=== PATIENT | female | born 2005 | race Caucasian/White ===

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

== ENCOUNTER 2023-05-16 14:09 | Inpatient (IN) | payer OTHER, SELFPAY ==
[2023-05-16] VITALS (99 sets, daily range): BP systolic 62–188; BP diastolic 30–170; PULSE 72–256; RESP 16–18; TEMP 36.3–37.1; O2SAT 95–100; BMI 39.0
[2023-05-16 15:15] LABS: Basophils Percent Auto 0.4 % (0.2-1.2); Eosinophils Absolute Auto 0.2 K/mm3 (0-0.3); Eosinophils Percent Auto 1.9 % (0-4.4); Hematocrit 39.5 % (37.0-47.0); Hemoglobin 12.2 g/dL (12.0-15.0); Immature Granulocyte Absolute 0.09 K/mm3 (0.00-0.031); Immature Granulocyte Percent A 0.9 % (0-0.5); Lymphocytes Absolute Auto 1.91 K/mm3 (0.9-3.2); Lymphocytes Percent Auto 18.2 % (18.3-44.2); Mean Corpuscular HGB Conc 30.9 g/dl (32-36); Mean Corpuscular Hemoglobin 28.2 pg (26-34); Mean Corpuscular Volume 91.2 fl (80-100); Monocytes Absolute Auto 0.6 K/mm3 (0.1-0.6); Monocytes Percent Auto 5.8 % (2.6-8.5); Neutrophils Absolute Auto 7.7 K/mm3 (1.3-6.7); Neutrophils Percent Auto 72.8 % (45.5-73.1); Platelet Count Result 209 k/mm3 (150-375); Red Blood Count 4.33 M/mm3 (4.2-5.4); Red Cell Distribution Width 13.2 % (11.5-14.5); White Blood Count 10.5 K/mm3 (4.5-10.0)
--- NOTE | 2023-05-16 15:19 | LDADM ---
This patient, Mary Patino, was admitted to Labor/Delivery/Recovery 105 on 05/16/23 at 14:09. Plans for labor, pain management and were discussed with patient. Patient/family oriented to hospital policies and general routines including ID bracelet, bed and alarms, visiting hours, pain management, procedures, bathroom and other care routines, personal items, smoking policy, room service/diet and guest tray routines, security routines, and visiting hours. Patient/Family are encouraged to report perceived risks to care and to ask questions if they do not understand what they are told or what they should do. See OBIX for further documentation.
[2023-05-16] MEDS: miSOPROStol 25 MCG TABLET VAGINAL (15:51)
--- NOTE | 2023-05-16 17:52 | PM.IMHP ---
H&P: HPI History of Present Illness Date/Time: 05/16/23 17:52 pt being admitted for IOL, at office visit today diagnosed with oligohydramnios. complicated by obesity. Chief Complaint: oligohydramnios PMFSH Family History Family History (Updated 05/12/23 @ 15:14 by Barbara Pascual RN) Other Patient denies significant medical history Social History Social History Smoking status: Current every day smoker Tobacco type: e-cigarettes/vaping Second hand tobacco smoke exposure: No Substance use: never Lack of Transportation: YES Lack of Food: Never True Current Housing: I Do Not Have Housing Concerned About Future Housing: No Difficulty Paying Gas/Electric Bills: No Difficulty Paying for Meds: No Currently Unemployed: No Education: High School Diploma/GED Difficulty w/ Childcare or Family Care: No Spiritual care concerns: No Meds Home Medications and Allergies Home Medications Medication Instructions Recorded Confirmed Type prenat.vits,remington,[id number] 1 tablet DAILY 05/12/23 05/16/23 History Allergies Allergy/AdvReac Type Severity Reaction Status Date / Time No Known Allergies Allergy Verified 12/06/20 19:47 Vital Signs Vital Signs - 24 hr 05/16/23 14:30 05/16/23 14:31 05/16/23 14:45 Temperature Pulse Rate 131 H 139 H 124 H Respiratory Rate Blood Pressure 136/85 123/74 135/85 Oxygen Delivery 05/16/23 15:01 05/16/23 15:16 05/16/23 15:31 Temperature Pulse Rate 113 H 111 H 107 H Respiratory Rate Blood Pressure 115/73 104/68 115/83 Oxygen Delivery 05/16/23 15:46 05/16/23 16:01 05/16/23 15:00 Temperature 36.3 C L Pulse Rate 121 H 108 H Respiratory Rate 18 Blood Pressure 110/69 116/75 Oxygen Delivery 05/16/23 16:16 05/16/23 16:31 05/16/23 16:45 Temperature Pulse Rate 100 96 93 Respiratory Rate Blood Pressure 121/80 111/55 L 123/80 Oxygen Delivery 05/16/23 17:04 05/16/23 17:16 05/16/23 17:31 Temperature Pulse Rate 99 147 H 101 H Respiratory Rate Blood Pressure 115/67 111/88 130/80 Oxygen Delivery 05/16/23 17:46 05/16/23 15:13 Temperature Pulse Rate 112 H Respiratory Rate Blood Pressure 127/74 Oxygen Delivery Room Air Exam Narrative: at 37.5 weeks gestation obesity oligohydramnios anticipate vaginal delivery Const: General: cooperative, healthy appearing and comfortable Chest: Chest palpation & inspection: normal inspection of the chest Resp: Effort & Inspection: normal respiratory effort Auscultation: clear to auscultation bilaterally Cardio: Rate: regular rate Rhythm: regular rhythm GI: Other: gravid, soft Skin: General skin exam: normal color Neuro: General: patient oriented x3 Extrem: Right lower extremity: normal to inspection Left lower extremity: normal to inspection Psych: Appearance: grossly normal H&P: Results Labs Labs: Short CBC 05/16/23 Range/Units 14:48 WBC 10.5 H (4.5-10.0) K/mm3 Hgb 12.2 (12.0-15.0) g/dL Hct 39.5 (37.0-47.0) % Plt Count 209 (150-375) k/mm3
[2023-05-16] MEDS: LACTATED RINGERS 500 ML 999 ML IV CONT (18:29)
--- NOTE | 2023-05-16 18:34 | P.PNAN_ITS ---
Anes - Eval Pre Procedure Procedure: labor epidural Date/Time: 05/16/23 18:34 Surgeon: brynn Preop Diagnosis: pain during labor Pre Op Diagnosis: IOL Patient Data Age: 17 Gender: F Height: 1.6 m Weight: 100 kg Last Vital Signs Temp 37.1 C 05/16/23 18:30 Pulse 98 05/16/23 18:31 Resp 16 05/16/23 18:30 BP 112/73 05/16/23 18:31 O2 Del Method Room Air 05/16/23 15:13 Allergies Allergy/AdvReac Type Severity Reaction Status Date / Time No Known Allergies Allergy Verified 12/06/20 19:47 Home Medications Medication Instructions Recorded Confirmed Type prenat.vits,remington,[id number] 1 tablet DAILY 05/12/23 05/16/23 History Laboratory Tests 05/16/23 14:48 WBC 10.5 H K/mm3 (4.5-10.0) RBC 4.33 M/mm3 (4.2-5.4) Hgb 12.2 g/dL (12.0-15.0) Hct 39.5 % (37.0-47.0) MCV 91.2 fl (80-100) MCH 28.2 pg (26-34) MCHC 30.9 L g/dl (32-36) RDW 13.2 % (11.5-14.5) Plt Count 209 k/mm3 (150-375) MPV 12.0 H fl (7.4-10.4) Immature Gran % (Auto) 0.9 H % (0-0.5) Neut % (Auto) 72.8 % (45.5-73.1) Lymph % (Auto) 18.2 L % (18.3-44.2) [place] % (Auto) 5.8 % (2.6-8.5) Eos % (Auto) 1.9 % (0-4.4) Baso % (Auto) 0.4 % (0.2-1.2) Lymph # (Auto) 1.91 K/mm3 (0.9-3.2) [place] # (Auto) 0.6 K/mm3 (0.1-0.6) Eos # (Auto) 0.2 K/mm3 (0-0.3) Baso # (Auto) 0.0 K/mm3 (0.0-0.1) Abs Immat Gran (auto) 0.09 H K/mm3 (0.00-0.031) Absolute Neuts (auto) 7.7 H K/mm3 (1.3-6.7) Absolute Nucleated RBC 0.0 K/mm3 (0.0-0.012) Nucleated RBC % 0.0 % (0.0-0.2) RPR Pending Blood Type B Positive Antibody Screen Negative Patient hx anesthesia problems: none Family hx anesthesia problems: none Results Review: All pre-operative results and documents have been reviewed as part of the pre- operative evaluation. [facility] Family History Family History (Updated 05/12/23 @ 15:14 by Barbara Pascual RN) Other Patient denies significant medical history Social History Social History Smoking status: Current every day smoker Tobacco type: e-cigarettes/vaping Second hand tobacco smoke exposure: No Substance use: never Lack of Transportation: YES Lack of Food: Never True Current Housing: I Do Not Have Housing Concerned About Future Housing: No Difficulty Paying Gas/Electric Bills: No Difficulty Paying for Meds: No Currently Unemployed: No Education: High School Diploma/GED Difficulty w/ Childcare or Family Care: No Spiritual care concerns: No Exam Day of Procedure 05/16/23 18:34
--- NOTE | 2023-05-16 19:44 | PM.OBPNLAB ---
Pain Control Date/time seen: 05/16/23 19:44 RN called requesting internal monitors, CNM at bs, AROM minimal amount of clear, odorless fluid, IUPC placed
[2023-05-16] MEDS: LACTATED RINGERS 1,000 ML 125 ML IV CONT (19:45)
[2023-05-17] VITALS (77 sets, daily range): BP systolic 62–169; BP diastolic 46–141; PULSE 85–155; RESP 16–18; TEMP 36.7–37.3; O2SAT 79–100
--- NOTE | 2023-05-17 04:16 | PM.OBPRVD ---
OB - Delivery Note Procedure Delivery date: 05/17/23 Procedure: Events: Oligohydramnios Induction method: AROM and Per Misoprostol Protocol Delivery augmentation: Rupture of Membranes Delivery monitor: External FHT and Internal Uterine Route of delivery: Laceration Description: None Specimen: Yes Quantitative Blood Loss (ml): 100 Anesthesia type: Epidural Disposition: Floor Baby Date of : 05/17/23 Time of : 04:07 Weeks of gestation at delivery: 37 gender: Male presentation: vertex position: Left Occiput Anterior Placenta delivery description: Spontaneous Cord Vessel Description: 3 Vessels, Clamped/Cut and Delayed Cord Clamping score one minute: 8 score five minutes: 9 Narrative: mother and baby skin to skin in stable condition
[2023-05-17] MEDS: OXYTOCIN 30 UNITS/NS 500 ML 30 UNITS/500 ML BAG 125 UNITS IV CONT (04:43)
--- NOTE | 2023-05-17 07:54 | OBPPTRN ---
Patient transferred to post room #291 via wheelchair. Support person present. Oriented to unit, room, information board, rooming in, admission packet and security measures. Patient verbalizes understanding.
[2023-05-17] MEDS: IBUPROFEN 600 MG TABLET PO ×3 (08:19→22:47)
[2023-05-17] MEDS: MULTIVIT/MIN/PREN/FOL AC/IRON TABLET 1 TAB PO (08:20)
--- NOTE | 2023-05-17 10:33 | PC.NURSE ---
[id number] Introductions were made, then consulted with patient to assess needs related to . Mother works well with her with encouragement and education. Mother is cradle holding infant skin to skin. RN recommended placing upright on her chest to encouraged infants instincts for . Educated parents to stimulate infant with massage touch, changing positions to encourage wakefulness, how to watch for early feeding cues, responsive feeding, feeding on demand (aiming for 8-12 times in 24 hours, about every 2-3 hours), milk production, building/maintaining a milk supply,hand expression, signs of adequate intake/output and how to record on the feeding sheet. Reviewed good handwashing when or touching the breast/nipples to prevent infection. Resources provided for inpatient/outpatient with name written on the communication board and the mom/baby guide. Parents voiced understanding of information, demonstrated learning and will call if there is a request for assistance. is between and 6 hours old and remains sleepy and reluctant. Reported to the Primary RN.
--- NOTE | 2023-05-17 11:13 | PC.NURSE ---
1100 - Purposefully rounded to assess needs. Primary RN is present in the room bottle feeding .
[2023-05-17] MEDS: DOCUSATE SODIUM 100 MG CAPSULE PO (15:44)
[2023-05-17 17:06] LABS: Rapid Plasma Reagin Non-Reactive (NonReactive)
[2023-05-17] MEDS: ACETAMINOPHEN 325 MG TABLET 650 MG PO (22:47)
[2023-05-17] MEDS: miSOPROStol 25 MCG TABLET VAGINAL (22:48)
[2023-05-18 05:31] LABS: Hematocrit 33.4 % (37.0-47.0); Hemoglobin 10.5 g/dL (12.0-15.0)
--- NOTE | 2023-05-18 07:28 | PM.OBPNVD ---
OB - PN: Subj Subjective Date/time seen: 05/18/23 07:28 Patient comments: no complaints baby status: doing well Narrative: pt to stay until tomorrow, baby not feeding well per peds OB - PN: Obj Data Labs 05/18/23 04:12 Labs: Laboratory Results - last 24 hr 05/16/23 05/18/23 14:48 04:12 Hgb 10.5 L Hct 33.4 L RPR Non-reactive OB - PN A/P Plan day: 1 Plan: routine care Time Spent With Patient Time: Total time spent is greater than 50% in coordination of care (as documented) at patient's floor/unit and/or counseling patient: Review of Systems Review of Systems: All systems reviewed & are unremarkable except as noted in HPI and below Exam Const: General: cooperative, healthy appearing and comfortable Chest: Chest palpation & inspection: normal inspection of the chest Resp: Effort & Inspection: normal respiratory effort Cardio: Rate: regular rate Rhythm: regular rhythm GI: Other: soft Extrem: Right lower extremity: normal to inspection Left lower extremity: normal to inspection
[2023-05-18 08:00] VITALS: BP 108/59; PULSE 91; RESP 18; TEMP 37.1; O2SAT 99
[2023-05-18] MEDS: IBUPROFEN 600 MG TABLET PO ×2 (08:01→16:04)
[2023-05-18] MEDS: ACETAMINOPHEN 325 MG TABLET 650 MG PO (08:01)
[2023-05-18] MEDS: DOCUSATE SODIUM 100 MG CAPSULE PO ×2 (08:02→16:04)
[2023-05-18] MEDS: MULTIVIT/MIN/PREN/FOL AC/IRON TABLET 1 TAB PO (08:02)
--- NOTE | 2023-05-18 08:58 | WPDANESPN ---
Anes - Prog Note Post-Op Date/Time: 05/18/23 08:58 Cardiovascular status: normal Respiratory status: normal Airway patency: baseline Mental status: baseline Post-Op hydration status: normal Vital Signs: Last Vital Signs Temp 36.8 C 05/17/23 19:24 Pulse 85 05/17/23 19:24 Resp 18 05/17/23 19:24 BP 108/60 05/17/23 19:24 Pulse Ox 99 05/17/23 12:33 O2 Del Method Room Air 05/17/23 19:29 Pain Score (VAS): 2/10 Laboratory Tests 05/18/23 04:12 05/16/23 05/18/23 14:48 04:12 Hgb 10.5 L Hct 33.4 L RPR Non-reactive Post-procedural complaints: none Patient Feedback: Patient satisfied with anesthetic care.
[2023-05-18] MEDS: WITCH HAZEL 40 PADS 1 PAD TOPICAL (16:05)
[2023-05-18 19:45] VITALS: BP 131/69; PULSE 107; RESP 18; TEMP 36.3; O2SAT 100
[2023-05-19] MEDS: ACETAMINOPHEN 325 MG TABLET 650 MG PO (01:50)
--- NOTE | 2023-05-19 07:52 | P.PNOB_ITS ---
OB - PN: Subj Subjective Date/time seen: 05/19/23 07:52 Patient comments: no complaints baby status: doing well [place] feeding status: exclusively bottle feeding OB - PN: Obj Data Labs 05/18/23 04:12 OB - PN A/P Plan day: 2 Plan: routine care and discharge home Time Spent With Patient Time: Total time spent is greater than 50% in coordination of care (as documented) at patient's floor/unit and/or counseling patient: Time with patient: less than 15 minutes Exam Narrative: NAD abdomen soft, nontender, fundus firm below the umbilicus Extremities nontender, 1+ edema
--- NOTE | 2023-05-19 07:55 | PM.OBDSVD ---
DS: Admitting Diagnosis Discharge Date 05/19/23 Admitting Diagnosis oligohydramnios at term DS: Discharge Diagnosis Discharge Diagnosis (1) , delivered: Code(s): O80 - Encounter for full-term uncomplicated delivery Status: Acute OB - DS: Summary Hospital Course Hospital Course: Mary was admitted for induction of labor for oligohydramnios at 37.4 weeks of . She proceeded to have an uncomplicated vaginal delivery and course and was discharged home on PPD2. OB Procedures : Ultrasound OB Procedures Intrapartum: Spontaneous Vag Delivery OB Procedures: : None Peripartum Data Infant Delivery Method: Natural Vaginal Status at Discharge Functional status at discharge: independent ambulation Time Spent with Patient Time attestation: Total time spent providing and/or coordinating discharge services: Exam Narrative: NAD abdomen soft, appropriately tender Ext non tender, 1+ edema DS: Data Data Completed and Pending Pending studies at discharge: Pending at discharge 05/17/23 05:54 Surgical [PTH] Routine Discharge Plan Discharge Attending physician on discharge: Ashley Perrin Discharging Clinician: Ashley Perrin Anticipated Discharge Date/Time: 05/19/23 07:54 Patient Disposition: Home, Self-Care Activity: pelvic rest Diet: regular Patient Instructions: Antibiotic Form Stand Alone Forms: General Discharge Information Follow-up/Referrals: Ashley Perrin MD [Physician] - 4 Weeks Discharge Medications: Continued #2 Tablet 1 tablet DAILY Date of admission: 05/16/23 14:09 Primary Care Provider: PHYSICIAN,[employer] SALES AGENT Admitting Provider: Ashley Perrin Attending physician on admission: Ashley Perrin Condition: Stable
[2023-05-19 08:00] VITALS: BP 110/64; PULSE 88; RESP 16; TEMP 36.9; O2SAT 99
--- NOTE | 2023-05-19 10:47 | PC.NURSE ---
Patient viewed the discharge video Mother & Baby Care, The First Two Weeks . Patient was given the opportunity and encouraged to ask questions. Patient verbalized understanding of information shared and has been given the mother/baby guide for home reference.
[2023-05-21 09:45] VITALS: BP 107/58; PULSE 91; RESP 16; TEMP 36.6; O2SAT 99
== END 2023-05-19 14:55 | disposition home or self-care (01) | DRG 807 ==
LOC: ANHLDR 14:13 → ANHOB2 05-17 07:58
PROVIDERS: Advanced Practice Midwife; Admitting Provider Obstetrics & Gynecology; Visit Provider Obstetrics & Gynecology
DX: O41.03X0 Oligohydramnios, third trimester, not applicable or unspecified (principal); Z37.0 Single live birth; O99.214 Obesity complicating childbirth; O99.334 Smoking (tobacco) complicating childbirth; F17.290 Nicotine dependence, other tobacco product, uncomplicated; Z3A.37 37 weeks gestation of pregnancy
CPT/HCPCS: 36415; 85014; 85018; 85025; 86592; 86850; 86900; 86901; 88307; A9270; J2590; J2795; J7120

== ENCOUNTER 2024-10-23 13:36 | Outpatient (CLI) | payer OTHER, MEDICAID, SELFPAY ==
--- NOTE | ~2024-10-23 | CT_ITS ---
EXAMINATION: CT soft tissue neck w con DATE: 10/23/2024 14:03 INDICATION: Localized neck swelling. TECHNIQUE: Computed tomography (CT) of the neck was performed with 75 mL Omnipaque-350 intravenous co ntrast. Automated exposure control and iterative reconstruction technique were employed. The dose-nithin gth product was 627.26 mGy-cm. COMPARISON: None FINDINGS: There is mild bilateral high internal jugular chain lymphadenopathy. The pharynx and larynx are normal. The orbits are normal. The paranasal sinuses are clear. The mastoid air cells are normal . There is mild cervical kyphosis. IMPRESSION: 1. Mild bilateral high internal jugular chain lymphadenopathy, likely reactive. Reviewed, dictated and finalized at location A. 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
--- OUTSIDE RECORDS SUMMARY | 2024-10-23 13:42 | XMS_ITS | Data Portability ---
[facility] Address 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 Name Role Phone JOSSELYN CURIEL Primary Care Provider [phone] Assessment Encounter Date Assessment Date Assessment LastModified by Organization Details LastModified Time 04/12/2021 04/12/2021 Nelly Castellanos PANereidaS Not available 04/12/2021 10:06:07 Plan of Treatment Reminders Order Date Submit Date Provider Last Modified By Organization Details Last Modified Time Details Appointments ANY 15 2024 03:30P Elissa Cleary MD Not available Not available Not available ANY 15 2024 02:00P Elissa Cleary MD Not available Not available Not available Lab cortisol, am, serum 2023 024 [email or web address] [facility], [address] [place] [address], [address], [place], [address], 08/18/2024 17:54:25 CBC 2023 024 DIMA [facility], [address], [address], [place], [address], 07/09/2024 11:20:37 CMP, serum or plasma 2023 024 DIMA [facility], [address], [address], [place], [address], 07/09/2024 11:20:34 vitamin B12 + folate, serum or blood 2023 024 DIMA [facility], [address], [address], [place], [address], 07/09/2024 11:20:36 TSH + free T4, serum 2023 024 DIMA [facility], [address], [address], [place], [address], 07/09/2024 11:20:32 lipid panel, serum 2023 024 DIMA [facility], [address], [address], [place], [address], 07/09/2024 11:20:33 Mycobacte rium tuberculo sis stimulate d gamma interfero n, qual, blood 2022 023 DIMA [facility], [address], [address], [place], [address], 12/05/2022 08:18:52 HbA1c (hemoglob in A1c), blood 2020 021 DIMA [facility], [address], [address], [place], [address], 04/13/2021 06:11:18 lipid panel, serum 2020 021 DIMA [facility], [address], [address], [place], [address], 04/13/2021 06:11:18 Referral podiatris t referral - R dorsal foot pain, hx of stress fracture, pes cavus 2020 021 [email or web address] Jun Mooney DPM, [address] , [place], [address], 11/14/2021 08:38:10 Procedures None recorded. Surgeries None recorded. Imaging CT, neck, soft tissue, w/ contrast [address] [facility], [address], [place], [address], 09/18/2024 08:18:04 XR, foot, 3 or more view 2020 021 [facility] ([facility]), [address] [place], [address], 06/07/2021 11:07:00 Medication Orders Medrol (Cornell) 4 mg tablets in a dose pack 2024 025 [email or web address] [id number], [address], [place], [id number], 10/21/2024 14:15:30 loratadin e 10 mg tablet 2022 [facility]23 [id number], [address], [place], [place], [id number], 07/08/2024 14:14:57 ibuprofen 800 mg tablet 2020 021 [facility] #[id number], [address], [place], [place], [id number], 12/01/2022 11:31:33 Patient TargetsNo targets recorded. 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 R dorsal foot pain, hx of stress fracture, pes cavus Referring Physician: Josselyn Curiel, Smoking Pipe Mounter, Encounter Date: 04/12/2021 Results Created Date Observation Date Name Description Value Unit Range Abnormal Flag Note LastModifiedBy Organization Detail LastModifiedTime 04/12/20 21 04/13/2021 CBC WITH DIFFE RENTI AL/PL ATELE T WBC 6.8 x10e3 /uL 3.4-10 .8 Not Available [facility] ([facility]) [address] [place], [address], 04/13/2021 06:11:17 04/12/2004/13/2021 CBC WITH DIFFE RENTI AL/PL ATELE T RBC 4.58 x10e6 /uL 3.77-5 .28 Not Available [facility] ([facility]) [address] [place], [address], 04/13/2021 06:11:17 04/12/2004/13/2021 CBC WITH DIFFE RENTI AL/PL ATELE T hemoglobin 13.5 g/dL 11.1-1 5.9 Not Available [facility] ([facility]) [address] [place], [address], 04/13/2021 06:11:17 04/12/2004/13/2021 CBC WITH DIFFE RENTI AL/PL ATELE T hematocrit 41.0 % 34.0-4 6.6 Not Available [facility] ([facility]) [address] [place], [address], 04/13/2021 06:11:17 04/12/2004/13/2021 CBC WITH DIFFE RENTI AL/PL ATELE T MCV 90 fL 79-97 Not Available [facility] ([facility]) [address] [place], [address], 04/13/2021 06:11:17 08/03/04/13/2021 CBC WITH DIFFE RENTI AL/PL ATELE T MCH 29.5 pg 26.6-3 3.0 Not Available [facility] ([facility]) [address], [place], [address], 04/13/2021 06:11:17 04/12/20 21 04/13/2021 CBC WITH DIFFE RENTI AL/PL ATELE T MCHC 32.9 g/dL 31.5-3 5.7 Not Available [facility] ([facility]) [address], [place], [address], 04/13/2021 06:11:17 04/12/2004/13/2021 CBC WITH DIFFE RENTI AL/PL ATELE T RDW 12.4 % 11.7-1 5.4 Not Available [facility] ([facility]) [address], [place], [address], 04/13/2021 06:11:17 04/12/2004/13/2021 CBC WITH DIFFE RENTI AL/PL ATELE T platelets 259 x10e3 /uL 150-45 0 Not Available [facility] ([facility]) [address], [place], [address], 04/13/2021 06:11:17 04/12/2004/13/2021 CBC WITH DIFFE RENTI AL/PL ATELE T neutrophils 52 % not estab. Not Available [facility] ([facility]) [address], [place], [address], 04/13/2021 06:11:17 04/12/20 21 04/13/2021 CBC WITH DIFFE RENTI AL/PL ATELE T lymphs 37 % not estab. Not Available [facility] ([facility]) [address], [place], [address], 04/13/2021 06:11:17 04/12/20 21 04/13/2021 CBC WITH DIFFE RENTI AL/PL ATELE T monocytes 8 % not estab. Not Available [facility] ([facility]) [address] [place], [address], 04/13/2021 06:11:17 04/12/20 21 04/13/2021 CBC WITH DIFFE RENTI AL/PL ATELE T eos 2 % not estab. Not Available [facility] ([facility]) [address] [place], [address], 04/13/2021 06:11:17 04/12/20 21 04/13/2021 CBC WITH DIFFE RENTI AL/PL ATELE T basos 1 % not estab. Not Available [facility] ([facility]) [address], [place], [address], 04/13/2021 06:11:17 04/12/20 21 04/13/2021 CBC WITH DIFFE RENTI AL/PL ATELE T immature cells SITE PLANNER Not Available [facility] ([facility]) [address] [place], [address], 04/13/2021 06:11:17 04/12/2004/13/2021 CBC WITH DIFFE RENTI AL/PL ATELE T neutrophils (absolute) 3.6 x10e3 /uL 1.4-7. 0 Not Available [facility] ([facility]) [address] [place], [address], 04/13/2021 06:11:17 04/12/20 21 04/13/2021 CBC WITH DIFFE RENTI AL/PL ATELE T lymphs (absolute) 2.5 x10e3 /uL 0.7-3. 1 Not Available [facility] ([facility]) [address] [place], [address], 04/13/2021 06:11:17 04/12/20 21 04/13/2021 CBC WITH DIFFE RENTI AL/PL ATELE T monocytes(ab solute) 0.5 x10e3 /uL 0.1-0. 9 Not Available [facility] ([facility]) [address], [place], [address], 04/13/2021 06:11:17 04/12/20 21 04/13/2021 CBC WITH DIFFE RENTI AL/PL ATELE T eos (absolute) 0.1 x10e3 /uL 0.0-0. 4 Not Available [facility] ([facility]) [address], [place], [address], 04/13/2021 06:11:17 04/12/20 21 04/13/2021 CBC WITH DIFFE RENTI AL/PL ATELE T baso (absolute) 0.1 x10e3 /uL 0.0-0. 3 Not Available [facility] ([facility]) [address], [place], [address], 04/13/2021 06:11:17 04/12/20 21 04/13/2021 CBC WITH DIFFE RENTI AL/PL ATELE T immature granulocytes 0 % not estab. Not Available [facility] ([facility]) [address], [place], [address], 04/13/2021 06:11:17 04/12/20 21 04/13/2021 CBC WITH DIFFE RENTI AL/PL ATELE T immature grans (abs) 0.0 x10e3 /uL 0.0-0. 1 Not Available [facility] ([facility]) [address] [place], [address], 04/13/2021 06:11:17 04/12/20 21 04/13/2021 CBC WITH DIFFE RENTI AL/PL ATELE T NRBC SITE PLANNER Not Available [facility] ([facility]) [address], [place], [address], 04/13/2021 06:11:17 04/12/20 21 04/13/2021 CBC WITH DIFFE RENTI AL/PL ATELE T hematology comments: SITE PLANNER Not Available [facility] ([facility]) [address] [place], [address], 04/13/2021 06:11:17 04/12/20 21 04/13/2021 LIPID PANEL cholesterol, total 154 mg/dL 100-16 9 Not Available [facility] ([facility]) [address] [place], [address], 04/13/2021 06:11:18 04/12/20 21 04/13/2021 LIPID PANEL triglyceride s 91 mg/dL 0-89 above high normal Not Available [facility] ([facility]) [address] [place], [address], 04/13/2021 06:11:18 04/12/20 21 04/13/2021 LIPID PANEL HDL cholesterol 39 mg/dL >39 below low normal Not Available [facility] ([facility]) [address] [place], [address], 04/13/2021 06:11:18 04/12/20 21 04/13/2021 LIPID PANEL VLDL cholesterol remington 17 mg/dL 5-40 Not Available [facility] ([facility]) [address] [place], [address], 04/13/2021 06:11:18 04/12/20 21 04/13/2021 LIPID PANEL LDL chol calc ([facility]) 98 mg/dL 0-109 Not Available [facility] ([facility]) [address] [place], [address], 04/13/2021 06:11:18 04/12/20 21 04/13/2021 LIPID PANEL comment: SITE PLANNER Not Available [facility] ([facility]) [address] [place], [address], 04/13/2021 06:11:18 04/12/20 21 04/13/2021 HEMOG LOBIN A1C hemoglobin A1C 5.3 % 4.8-5. 6 Predi abete s: 5.7 - 6.4 Diabe holley: >6.4 Glyce walter contr ol for adult s with diabe holley: <7.0 Not Available [facility] ([facility]) [address], [place], [address], 04/13/2021 06:11:18 04/12/20 21 04/12/2021 visua l acuit y* R Eye Uncorrected 20/30 Not Available In-O ffice Order Internal Use Only DO Not Attach Compendium DO Not Attach Compendium, Do Not Delete/merge, [id number] 04/12/2021 10:09:49 04/12/20 21 04/12/2021 visua l acuit y* L Eye Uncorrected 20/25 Not Available In-O ffice Order Internal Use Only DO Not Attach Compendium DO Not Attach Compendium, Do Not Delete/merge, [id number] 04/12/2021 10:09:49 08/24/20 22 08/25/2022 PROGE STERO NE progesterone 0.8 NG/mL Folli cular phase 0.1 - 0.9 Lutea l phase 1.8 - 23.9 Ovula tion phase 0.1 - 12.0 Pregn ant First trime ster 11.0 - 44.3 Secon d trime ster 25.4 - 83.3 Third trime ster 58.7 - 214.0 Postm enopa usal 0.0 - 0.1 Not Available [facility] ([facility]) [address], [place], [address], 08/25/2022 08:19:50 08/24/20 22 08/25/2022 HCG,B ETA SUBUN IT, QNT HCG,beta subunit,qnt, serum 2 mIU/m L Femal e (Non- pregn ant) 0 - 5 (Post menop ausal ) 0 - 8 Femal e (Preg nant) Weeks of Gesta tion 3 6 - 71 4 10 - 373 5 189 - 6827 6 868 - 90860 7 9142 -3186 63 8 24697 -6598 71 9 75843 -5645 10 10 86404 -2228 77 12 68857 -3782 12 14 93824 - 08770 15 85563 - 75001 16 9096 - 36655 17 4646 - 85901 18 5858 - 24565 Enoch ECLIA metho dolog y Not Available [facility] ([facility]) [address], [place], [address], 08/25/2022 08:19:50 12/02/1912/02/2022 QUANT IFERO N-TB GOLD PLUS quantiferon incubation Incuba tion perfor med. Not Available [facility] ([facility]) [address], [place], [address], 12/05/2022 08:18:52 12/02/1912/02/2022 QUANT IFERO N-TB GOLD PLUS quantiferon criteria Commen t Quant iFERO N-TB Gold Plus is a quali tativ e indir ect test for M tuber culos is infec tion (incl uding disea se) and is inten ded for use in conju nctio n with risk asses sment , radio graph y, and other medic al and diagn ostic evalu ation s. The Quant iFERO N-TB Gold Plus resul t is deter mined by subtr actin g the Nil value from eithe r TB antig en (Ag) value . The Mitog en tube serve s as a contr ol for the test. Not Available [facility] ([facility]) [address], [place], [address], 12/05/2022 08:18:52 12/02/1912/05/2022 QUANT IFERO N-TB GOLD PLUS quantiferon- TB gold plus Negati ve negati ve No respo nse to M tuber culos is antig ens detec elizabeth. Infec tion with M tuber culos is is unlik nan, but high risk indiv idual s shoul d be consi dered for addit ional testi ng (ATS/ IDSA/ CDC Clini rem[place] Pract ice Guide lines , 2017) . The refer ence range is an Antig en minus Nil resul t of <0.35 IU/mL . Chemi lumin escen ce immun oassa y metho dolog y Not Available [facility] ([facility]) [address] [place], [address], 12/05/2022 08:18:52 12/02/1912/05/2022 QUANT IFERO N-TB GOLD PLUS quantiferon TB1 Ag value 0.34 IU/mL Not Available [facility] ([facility]) [address] [place], [address], 12/05/2022 08:18:52 12/02/19 23 12/05/2022 QUANT IFERO N-TB GOLD PLUS quantiferon TB2 Ag value 0.30 IU/mL Not Available [facility] ([facility]) [address] [place], [address], 12/05/2022 08:18:52 12/02/19 23 12/05/2022 QUANT IFERO N-TB GOLD PLUS quantiferon nil value 0.02 IU/mL Not Available [facility] ([facility]) [address] [place], [address], 12/05/2022 08:18:52 12/02/1912/05/2022 QUANT IFERO N-TB GOLD PLUS quantiferon mitogen value >10.00 IU/mL Not Available [facility] ([facility]) [address] [place], [address], 12/05/2022 08:18:52 07/08/2007/09/2024 TSH+F REE T4 TSH 1.020 uIU/m L 0.450- 4.500 Not Available [facility] ([facility]) [address] [place], [address], 07/09/2024 11:20:32 07/08/2007/09/2024 TSH+F REE T4 T4,free(dire ct) 0.93 NG/dL 0.82-1 .77 Not Available [facility] ([facility]) [address] [place], [address], 07/09/2024 11:20:32 07/08/20 24 07/09/2024 LIPID PANEL cholesterol, total 190 mg/dL 100-19 9 Not Available [facility] ([facility]) [address], [place], [address], 07/09/2024 11:20:33 07/08/20 24 07/09/2024 LIPID PANEL triglyceride s 140 mg/dL 0-149 Not Available [facility] ([facility]) [address] [place], [address], 07/09/2024 11:20:33 07/08/2007/09/2024 LIPID PANEL HDL cholesterol 39 mg/dL >39 below low normal Not Available [facility] ([facility]) [address] [place], [address], 07/09/2024 11:20:33 07/08/20 24 07/09/2024 LIPID PANEL VLDL cholesterol remington 25 mg/dL 5-40 Not Available [facility] ([facility]) [address] [place], [address], 07/09/2024 11:20:33 07/08/20 24 07/09/2024 LIPID PANEL LDL chol calc ([facility]) 126 mg/dL 0-99 above high normal Not Available [facility] ([facility]) [address] [place], [address], 07/09/2024 11:20:33 07/08/20 24 07/09/2024 COMP. METAB OLIC PANEL (14) glucose 110 mg/dL 70-99 above high normal Not Available [facility] ([facility]) [address] [place], [address], 07/09/2024 11:20:34 07/08/20 24 07/09/2024 COMP. METAB OLIC PANEL (14) BUN 13 mg/dL 6-20 Not Available [facility] ([facility]) [address], [place], [address], 07/09/2024 11:20:34 07/08/20 24 07/09/2024 COMP. METAB OLIC PANEL (14) creatinine 0.79 mg/dL 0.57-1 .00 Not Available [facility] ([facility]) [address], [place], [address], 07/09/2024 11:20:34 07/08/20 24 07/09/2024 COMP. METAB OLIC PANEL (14) eGFR 110 mL/mi n/1.7 3 >59 Not Available [facility] ([facility]) [address] [place], [address], 07/09/2024 11:20:34 07/08/20 24 07/09/2024 COMP. METAB OLIC PANEL (14) BUN/creatini ne ratio 16 9-23 Not Available [facility] ([facility]) [address], [place], [address], 07/09/2024 11:20:34 07/08/20 24 07/09/2024 COMP. METAB OLIC PANEL (14) sodium 146 mmol/ L 134-14 4 above high normal Not Available [facility] ([facility]) [address], [place], [address], 07/09/2024 11:20:34 07/08/20 24 07/09/2024 COMP. METAB OLIC PANEL (14) potassium 4.2 mmol/ L 3.5-5. 2 Not Available [facility] ([facility]) [address] [place], [address], 07/09/2024 11:20:34 07/08/20 24 07/09/2024 COMP. METAB OLIC PANEL (14) chloride 110 mmol/ L 96-106 above high normal Not Available [facility] ([facility]) [address], [place], [address], 07/09/2024 11:20:34 07/08/20 24 07/09/2024 COMP. METAB OLIC PANEL (14) carbon dioxide, total 21 mmol/ L Not Available [facility] ([facility]) [address], [place], [address], 07/09/2024 11:20:34 07/08/20 24 07/09/2024 COMP. METAB OLIC PANEL (14) calcium 9.6 mg/dL 8.7-10 .2 Not Available [facility] ([facility]) [address], [place], [address], 07/09/2024 11:20:34 07/08/20 24 07/09/2024 COMP. METAB OLIC PANEL (14) protein, total 7.4 g/dL 6.0-8. 5 Not Available [facility] ([facility]) [address], [place], [address], 07/09/2024 11:20:34 07/08/20 24 07/09/2024 COMP. METAB OLIC PANEL (14) albumin 4.6 g/dL 4.0-5. 0 Not Available [facility] ([facility]) [address], [place], [address], 07/09/2024 11:20:34 07/08/20 24 07/09/2024 COMP. METAB OLIC PANEL (14) globulin, total 2.8 g/dL 1.5-4. 5 Not Available [facility] ([facility]) [address] [place] [place], [address], 07/09/2024 11:20:34 07/08/20 24 07/09/2024 COMP. METAB OLIC PANEL (14) bilirubin, total 0.6 mg/dL 0.0-1. 2 Not Available [facility] ([facility]) [address] [place], [address], 07/09/2024 11:20:34 07/08/20 24 07/09/2024 COMP. METAB OLIC PANEL (14) alkaline phosphatase 89 IU/L 42-106 Not Available [facility]) [address], [place], [address], 07/09/2024 11:20:34 07/08/20 24 07/09/2024 COMP. METAB OLIC PANEL (14) AST (SGOT) 17 IU/L 0-40 Not Available [facility] ([facility]) [address], [place], [address], 07/09/2024 11:20:34 07/08/20 24 07/09/2024 COMP. METAB OLIC PANEL (14) ALT (SGPT) 17 IU/L 0-32 Not Available [facility] ([facility]) [address], [place], [address], 07/09/2024 11:20:34 07/08/20 24 07/09/2024 VITAM IN B12 AND FOLAT E vitamin B12 462 pg/mL 232-12 45 Not Available [facility] ([facility]) [address], [place], [address], 07/09/2024 11:20:36 07/08/20 24 07/09/2024 VITAM IN B12 AND FOLAT E folate (folic acid), serum 13.3 NG/mL >3.0 A serum folat e lesly ntrat ion of less than 3.1 ng/mL is consi dered to repre sent clini remington defic iency . Not Available [facility] ([facility]) [address], [place], [address], 07/09/2024 11:20:36 07/08/20 24 07/09/2024 CBC, PLATE LET, NO DIFFE RENTI AL WBC 7.2 x10e3 /uL 3.4-10 .8 Not Available [facility] ([facility]) [address], [place], [address], 07/09/2024 11:20:37 07/08/2007/09/2024 CBC, PLATE LET, NO DIFFE RENTI AL RBC 5.30 x10e6 /uL 3.77-5 .28 above high normal Not Available [facility] ([facility]) [address], [place], [address], 07/09/2024 11:20:37 07/08/2007/09/2024 CBC, PLATE LET, NO DIFFE RENTI AL hemoglobin 15.0 g/dL 11.1-1 5.9 Not Available [facility] ([facility]) [address] [place], [address], 07/09/2024 11:20:37 07/08/2007/09/2024 CBC, PLATE LET, NO DIFFE RENTI AL hematocrit 46.9 % 34.0-4 6.6 above high normal Not Available [facility] ([facility]) [address], [place], [address], 07/09/2024 11:20:37 07/08/2007/09/2024 CBC, PLATE LET, NO DIFFE RENTI AL MCV 89 fL 79-97 Not Available [facility] ([facility]) [address] [place], [address], 07/09/2024 11:20:37 07/08/2007/09/2024 CBC, PLATE LET, NO DIFFE RENTI AL MCH 28.3 pg 26.6-3 3.0 Not Available [facility] ([facility]) [address] [place], [address], 07/09/2024 11:20:37 07/08/2007/09/2024 CBC, PLATE LET, NO DIFFE RENTI AL MCHC 32.0 g/dL 31.5-3 5.7 Not Available [facility] ([facility]) [address] [place], [address], 07/09/2024 11:20:37 07/08/2007/09/2024 CBC, PLATE LET, NO DIFFE RENTI AL RDW 12.8 % 11.7-1 5.4 Not Available [facility] ([facility]) [address], [place], [address], 07/09/2024 11:20:37 07/08/2007/09/2024 CBC, PLATE LET, NO DIFFE RENTI AL platelets 325 x10e3 /uL 150-45 0 Not Available [facility] ([facility]) [address], [place], [address], 07/09/2024 11:20:37 Result Notes None recorded. Problems Name Problem SNOMED Code Status Onset Date Resolution Date Notes Provider Name and Address Organization Details Recorded Time Migraine 27483796 Active 2020 SADE SAINI Attn: Nissa graves,[address] [place], [address], [facility] 16:31:51 Dysmenorrhea 366247364 Active 2020 SADE SAINI Attn: Nissa graves,[address] [place], [address], [facility] 14:17:25 Body mass index 30+ - obesity 821863926 Active 2020 SADE SAINI Attn: Nissa graves,[address] [place], [address], [place] [facility] 1 14:17:27 Paresthesia of bilateral hands 341021801 Active 2023 Hussain Cleary MD Attn: Nissa graves,[address] [place], [address], [place] [facility] 4 14:28:45 Hypercholester olemia 21879154 Active 2023 Hussain Cleary MD Attn: Nissa graves,[address] [place], [address], [place] [facility] 4 17:19:29 Hyperglycemia 63888822 Active 2023 Hussain Cleary MD Attn: Nissa graves,[address] [facility], [place], [address], [place] [facility] 4 17:19:30 Mass of neck 008126401 Active 2023 Hussain Cleary MD Attn: Nissa graves,[address] [facility], [place], [address], [place] [facility] 4 17:19:33 [place] hump 19215822 Active 2023 Hussain Cleary MD Attn: Nissa graves,[address] [facility], [place], [address], [place] [facility] 4 17:19:35 Obesity 457554107 Active 2023 Hussain Cleary MD Attn: Nissa graves,[address] [facility], [place], [address], [place] [facility] 4 17:20:30 Problem Notes None recorded. Medical Equipment None Reported. Allergies No known drug allergies Medications Name Sig Start Date Stop Date Status Note LastModified by Organization Details LastModified Time ibuprofen 800 mg tablet Take 1 tablet 3 times a day by oral route as needed for 7 days. 12/01 completed Not Available Not Available Not Available Medrol ([place]) 4 mg tablets in a dose pack Take 1 dose pk by oral route as directed. 2024 active Not Available Not Available Not Avai lable famotidine 20 mg tablet Take 1 tablet twice a day by oral route as directed for 30 days. 04/12 completed Not Available Not Available Not Available loratadine 10 mg tablet Take 1 tablet every day by oral route as needed for 30 days. 07/08 completed Not Available Not Available Not Available naproxen 500 mg tablet TK 1 T PO BID WITH FOOD 11/30 completed Not Available Not Available Not Available nitrofurant oin monohydrate /macrocryst als 100 mg capsule TAKE 1 CAPSULE BY MOUTH EVERY 12 HOURS FOR 7 DAYS 07/08 completed Not Available Not Available Not Available Nexplanon 68 mg subdermal implant Inject 1 implant by subcutane ous route. 11/30 completed Not Available Not Available Not Available WesTab Plus 27 mg iron-1 mg tablet TAKE 1 TABLET BY MOUTH EVERY DAY 07/08 completed Not Available Not Available Not Available Vitals Date Recorded Body height Body mass index (BMI) Percentile per age and sex Body mass index (BMI) Body weight Heart rate Body temperature Oxygen saturation Oxygen saturation in Arterial blood by Pulse oximetry Systolic blood pressure Diastolic blood pressure Provider Name and Address Organization Details Last Updated DateTime 1 164.47 cm 97 % 33.1 kg/m2 45770.1 g 70 /min 98.6 [degF] 98 % 98 % 104 mm[Hg] 80 mm[Hg] Sophy Contreras [place] [facility] 1 10:02:47 Date Recorded Body height Body mass index (BMI) Body mass index (BMI) Percentile per age and sex Body weight Heart rate Body temperature Oxygen saturation Oxygen saturation in Arterial blood by Pulse oximetry Systolic blood pressure Diastolic blood pressure Provider Name and Address Organization Details Last Updated DateTime 3 164.47 cm 33.8 kg/m2 97 % 65920.8 7 g 88 /min 98.9 [degF] 98 % 98 % 104 mm[Hg] 80 mm[Hg] Sophy Contreras [place] [facility] 3 11:44:58 Date Recorded Body height Oxygen saturation Oxygen saturation in Arterial blood by Pulse oximetry Heart rate Body mass index (BMI) Body mass index (BMI) Percentile per age and sex Body weight Systolic blood pressure Diastolic blood pressure Provider Name and Address Organization Details Last Updated DateTime 4 164.47 cm 98 % 98 % 112 /min 37.4 kg/m2 98 % 267188. 1 g 120 mm[Hg] 70 mm[Hg] Palak Mayorga [place] [facility] 4 14:16:53 Date Recorded Body height Body mass index (BMI) Body mass index (BMI) Percentile per age and sex Body weight Oxygen saturation Oxygen saturation in Arterial blood by Pulse oximetry Heart rate Systolic blood pressure Diastolic blood pressure Provider Name and Address Organization Details Last Updated DateTime 4 164.47 cm 38.3 kg/m2 98 % 463394. 16 g 98 % 98 % 106 /min 122 mm[Hg] 78 mm[Hg] Palak Mayorga MA [facility] 4 16:55:30 Date Recorded Body height Respiratory rate Oxygen saturation Oxygen saturation in Arterial blood by Pulse oximetry Heart rate Systolic blood pressure Diastolic blood pressure Provider Name and Address Organization Details Last Updated DateTime 5 164.47 cm 16 /min 98 % 98 % 114 /min 124 mm[Hg] 74 mm[Hg] Melissa Paul [facility] 5 13:57:33 Social History Question Answer Notes LastModified by Organizat ion Details LastModified Time Tobacco Smoking Status Never Smoker Jannie Bejarano MA [facility], [facility] 05/20/2020 10:18:29 Do You Have An Advance Directive? No Information not available 05/20/2020 What Is Your Level Of Alcohol Consumption? None Information not available 05/20/2020 Is Blood Transfusion Acceptable In An Emergency? Yes Information not available 05/20/2020 What Is Your Level Of Caffeine Consumption? Occasional Information not available 05/20/2020 How Much Tobacco Do You Chew? None Information not available 05/20/2020 In The 14 Days Before Symptom Onset, Have You Had Close Contact With A Laboratory-confi rmed COVID-19 While That Case Was Ill? No Information not available 11/30/2020 In The 14 Days Before Symptom Onset, Have You Had Close Contact With A Person Who Is Under Investigation For COVID-19 While That Person Was Ill? No Information not available 11/30/2020 Have You Been To An Area Known To Be High Risk For COVID-19? 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 REGULAR Information not available 05/20/2020 Which Illicit Or Recreational Drugs Have You Used? Patient Denies Information not available 05/20/2020 Do You Or Have You Ever Used E-cigarettes Or Vape? 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 Student Information not available 05/20/2020 What Is Your Home Situation? Mother Information not available 11/30/2020 Live Alone Or With Others? With Others Information not available 05/20/2020 Parent Involvement? Dad Not Invloved Information not available 11/30/2020 What Was The Date Of Your Most Recent Tobacco Screening? 10/21/2024 [email or web address] Information not available 10/21/2024 How Many Children Do You Have? 0 Information not available 05/20/2020 Performs Monthly Self-breast Exam? No Information not available 05/20/2020 Do You Use Protection During Sex? Always Information not available 05/20/2020 What Is Your Relationship Status? Single Information not available 05/20/2020 Seat Belts Used Routinely Yes Information not available 05/20/2020 Are You Sexually Active? No Information not available 11/30/2020 Do You Or Have You Ever Used Smokeless Tobacco? Never Used Smokeless Tobacco Information not available 05/20/2020 How Much Tobacco Do You Smoke? No Information not available 05/20/2020 Do You Use Sunscreen Routinely? Yes Information not available 05/20/2020 Has Tobacco Cessation Counseling Been Provided? No Information not available 12/01/2022 On What Date Was Tobacco Cessation Counseling Provided? 10/21/2024 [email or web address] Information not available 10/21/2024 Do You Or Have You Ever Used Any Other Forms Of Tobacco Or Nicotine? No [email or web address] Information not available 10/21/2024 Sex: Female Functional Status Question Answer Note LastModified by Organization D etails LastModified Time What is your exercise level? Moderate Information not available 05/20/2020 Mental Status None recorded. Family History Relationship Description Onset Age of this Age Resolved Age Notes LastModified by Organization Details LastModified Time Father No current problems or disability [email or web address] Not available 05/11 10:18:22 Mother No current problems or disability [email or web address] Not available 05/11 10:18:22 Maternal Grandfather Diabetes mellitus [email or web address] Not available 2020 08:48:41 Maternal Grandfather Family history of malignant neoplasm [email or web address] Not available 2020 08:49:05 Medical History No medical history recorded. Gynecological History Statement/Question Response Abnormal Pap N Date of LMP 08/25/2022 STIs/STDs N HPV Vaccine N Age at Menarche 10 Current Control Method Sexually Active? Y Menses Monthly N Sexual Problems? N LMP Definite Desired Control Method N/A Obstetrics History GPAL:G 1 P 0 0 0 0 Immunizations Vaccine Type Date Status Note Provider Nam e and Address Organization Details Recorded Time DTP 4 completed Robyn Terrazas [place], [place] [facility] 05/20/2020 10:31:07 DTP 4 completed Robyn [place] [facility] 05/20/2020 10:31:12 DTP 4 completed Robyn [place] [facility] 05/20/2020 10:31:19 DTP 5 completed Robyn [place] [facility] 05/20/2020 10:31:28 DTP 9 completed Robyn [place] [facility] 05/20/2020 10:31:48 Tdap 7 completed Robyn [place] [facility] 05/20/2020 10:32:01 IPV 4 completed Robyn [place] [facility] 05/20/2020 10:32:26 IPV 4 completed Robyn [place] [facility] 05/20/2020 10:32:30 IPV 5 marc Ter[place] [facility] 05/20/2020 10:32:37 IPV 9 marc [place] [facility] 05/20/2020 10:32:52 Hib (PRP-T) 4 marc [place] [facility] 05/20/2020 10:33:21 Hib (PRP-T) 4 completed Robyn [place] [facility] 05/20/2020 10:33:26 Hib (PRP-T) 4 completed Robyn [place] [facility] 05/20/2020 10:33:32 Hib (PRP-T) 5 completed Robyn [place] [facility] 05/20/2020 10:33:36 pneumococcal conjugate PCV 7 4 completed Robyn [place] [facility] 05/20/2020 10:34:03 pneumococcal conjugate PCV 7 4 completed Robyn [place] [facility] 05/20/2020 10:34:08 pneumococcal conjugate PCV 7 4 completed Robyn [place] [facility] 05/20/2020 10:34:13 pneumococcal conjugate PCV 7 5 completed Robyn [place] [facility] 05/20/2020 10:34:18 Hep A, unspecified formulation 6 completed Robyn [place] [facility] 05/20/2020 10:34:57 Hep A, unspecified formulation 7 completed Robyn [place] [facility] 05/20/2020 10:35:04 MMR 5 completed Robyn [place] [facility] 05/20/2020 10:35:17 MMR 9 completed oRbyn [place] [facility] 05/20/2020 10:35:25 varicella 5 completed Robyn [place] [facility] 05/20/2020 10:35:43 varicella 9 completed Robyn [place] [facility] 05/20/2020 10:35:48 meningococcal ACWY, unspecified formulation 7 completed Robyn [place] [facility] 05/20/2020 10:36:13 HPV9 7 completed Robyn [place] [facility] 05/20/2020 10:37:17 HPV9 7 completed Robyn [place] [facility] 05/20/2020 10:37:22 Hep B, unspecified formulation 4 completed Sophy Contreras [place] [facility] 11/30/2020 08:56:30 Hep B, unspecified formulation 4 completed Sophy Contre[place] [facility] 11/30/2020 08:56:42 Hep B, unspecified formulation 4 completed Sophy Contre[place] [facility] 11/30/2020 09:00:02 meningococcal MCV4P 1 completed Sophy Contre[place] [facility] 11/30/2020 09:47:30 meningococcal B, OMV 1 completed SADE SAINI Attn: Accounting,[address] [place], [address], [place] [facility] 04/12/2021 10:49:41 Past Encounters Encounter ID Performer Location Encounter Start Date Encounter Closed Date Diagnosis/Indication Diagnosis SNOMED-CT Code Diagnosis ICD10 Code Diagnosis Note [id number] 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) [address] [place] [id number] 05/20/2020 09:58:58 05/20/2020 21:36:36 Family planning surveillance 987035432 Z30.09 on nexplanon (09/2019) Gynecologi c examination 86307475 Z01.419 Exposure t o sexually transmissible disorder 957513504 Z20.2 Surveillan ce of subcutaneous contraceptive implant 017297992 Z30.46 [id number] SADE SAINI [facility] (Adult Med) [address] [place] [address] 11/30/2020 08:34:44 12/01/2020 10:22:15 Active or passive immunization 885492576 Z23 Presents today for meningococ remington booster vaccinatio n, first meningococ remington vaccine was administer ed on 11/15/2016 Patient plans to attend college in fall - Administer ed Menactra vaccinatio n today (11/30/2020 ) - Informed her on serogroup B meningococ remington honeycutt n if she plans to live in the dorms when she starts college, will discuss further in the near future Adult heal th examination 085018066 Z00.00 Presents today to establish care Overall healthy, does not take chronic medication s Currently a [employer] in high school, needs an update on some vaccines Used to follow with pediatrici an at [facility] Epigastric pain 84261698 R10.13 Complains of diffuse upper abdominal pain (greatest over epigastriu m) with eating only x 3 months Reports pain with any type of food, whether it is greasy/spi cy or not; she is able to tolerate fluids without any issues Reports associated decreased appetite secondary to the pain, nausea, intermitte nt diarrhea, increased flatus and belching for the same period of time No excessive ibuprofen use, alcohol consumptio n, dyspepsia, vomiting, or abdominal bloating On PE: Mild LUQ, epigastriu m, and RUQ abdominal TTP without rebound or guarding. Negative Dill's sign. Suspect symptomati c cholelithi asis vs GERD - Ordered CBC, CMP, H. pylori breath test, US gallbladde r to further investigat e epigastric pain - Start famotidine 20 mg QD x 1 month to see if it helps with pain Migraine 52906255 G43.90 9 Complains of frontal headache x 2 months, occurring 2-3 times per week Described as pounding and is associated with photophobi a and phonophobi a Each episode lasts 30 minutes - 2 hours before resolving on its own or with sleep, no relief with Tylenol No aura, vision changes, allergies, or family history of migraines Suspect migraines at this time - Discussed abortive vs daily therapy for migraines with patient and her grandmothe r - They would like to start with abortive therapy and progress to daily medication s as needed in the future - Start sumatripta n 50 mg as needed for migraines, repeat dose after 2 hours as needed with max 2 tablets/24 hours [id number] SADE SAINI (Adult Med) [address] [place] [address] 04/12/2021 09:51:49 04/14/2021 13:43:18 History and physical examination, [facility] 61410604 Z02.0 Patient presents for annual school and sports physical. Will be trying out for her volleyball team at school. Is overall doing well.VA today 20/30 OD and 20/25 OS. 20/20 OU. Does admit to intermitte nt headaches and blurry visions. States that she does have glasses for distance.- Informed patient that if headaches and blurry vision worsens, she should schedule an appointmen t with her optometris t to make necessary changes to her glasses prescripti on.- physical form completed in the office today, copied, and returned to patient Body mass index 30+ - obesity 087480948 Z68.33 Patient presents with BMI >30.-Admit s to family history of diabetes.- Patient is fasting today. HbA1c and lipids ordered today. Active or passive immunization 155147355 Z23 Patient plans to attend college in Fall of 2021 - Informed her on serogroup B meningococ remington vaccinatio n if she plans to live in the dorms when she starts college. 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 Is interested in beginning the Bexsero series today.-Fir st dose of Bexsero administer ed today (04/12/21). Advised patient to return in one month to receive the second and final dose. Pain in right foot 83700 98518 53787 M79.671 Patient reports an injury to the lateral aspect of her right foot one year ago. States that she had a hairline fracture but was told it should heal on its own. Is now presenting with right dorsal foot pain that began one week ago after practicing for volleyball . Has tried conservati ve measures at home.-Will order right foot xray to rule out fracture.- due to history of pes cavus, will send referral to podiatry Dysmenorrhea 147282879 N 94.6 Patient complains of painful menstrual cramps that last for the entire time she is bleeding.H as tried OTC ibuprofen, tylenol and midol with minimal relief. States that pain is still so bad she often times does not want to get out of bed. Has been on Nexplanon in the past.-Will prescribe Ibuprofen today. Informed patient I want her to only take this medication around the time of her period. Heat may also help her cramps.-In formed her that there are control options that can help regulate the hormones that cause her painful cramps and that we can pursue those at a later date if necessary. Congenital pes cavus 205 701342 Q66.70 Patient has been seen by podiatry in the past for bilateral high arches. States that she was given an orthotic inserts but does not like wearing them because the insert itself is so thick that she does not have a lot of extra room in her shoe, therefore she is uncomforta ble.-Would like patient to follow up with podiatry again. Will place referral today. [id number] SADE SAINI [facility] ([facility]ult [facility]) [address] [place] [address] 12/01/2022 11:30:09 12/05/2022 13:21:59 History and physical examination, [facility] 19434545 Z02.0 15-year-ol d female with a history of migraines presents for school physical. 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 Patient is up to date on her immunizati ons, needs TB serum blood test today. 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 Admits to clear rhinorrhea .On PE: fluid present behind TMs and nares non-patien t, patient sniffling while talking- discussed likely seasonal allergies- anti-hista mine PRN for allergies Obesity 345454453 E66.9 Advised decreased portion sizes, good food choices, limited eating out or fast food and eliminate soda and juice from diet. Advised physical activity daily and offered encouragem ent to continue with positive changes made so far. Depression screening 171 814190 Z13.31 PHQ 2/9 was negative in office today (0 out of 27) [id number] Hussain Cleary MD [facility] [place] [address] [facility] [address] [place] [address] 07/08/2024 14:07:48 07/09/2024 09:57:48 Paresthesia of bilateral hands 361694736 R20.2 conditoin acute order tsh, b12, folate, cb, cmp Body mass index 30+ - obesity 958764063 Z68.33 conditon chronic and not at goal start low fat diet. 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 Cholesterol screening 27 2711908 Z13.220 order lipid panel [id number] Hussain Cleary MD [facility] [employer] [facility] [place] [address] [facility] [address] [facility] [address] [place] [address] 08/18/2024 16:37:49 08/20/2024 12:41:08 Mass of neck 991653125 R22.[address] soft tissue neck with contrast [place] hump 72684565 R2 2.2 conditon acute order am cortisol Migraine 53614464 G43.90 9 conditon chronic and at goal conitnue hte motrin prn. Hyperglycemia 63866420 R 73.9 condition acute start low carb diet. Hypercholesterolemia 136 93376 E78.00 conditon acute start low fat diet. Obesity 725221787 E66.9 conditon chronic and not at goal start low fat diet. [id number] Hussain Cleary MD [facility] [employer] [facility] [place] [address] [facility] [address] [facility] [address] [place] [address] 10/21/2024 13:48:40 10/22/2024 09:59:55 Acute laryngitis 5927535 J04.0 conditoin acute order medrol dose pack cold liquids. Hypercholesterolemia 136 70066 E78.00 conditon acute start low fat diet. Migraine 42489356 G43.90 9 conditon chronic and at goal conitnue hte motrin prn. Obesity 926858845 E66.9 conditon chronic and not at goal start low fat diet. Health Concerns Section Related Observation LastModified by Organization Detai ls LastModified Time None Recorded Concern Status LastModified by Organization Details LastModified Time None Recorded Advance Directives Directive N: Payers Encounter Date Sequence Insurance Name Policy Number Policy Jiménez Covered Member ID Jiménez Member ID Guarantor Name 04/12/2021 1 [facility] [id number] Raquel Underwood [id number] 04/12/2021 2 [place] [facility] Mary Patino [id number] 12/01/2022 1 [facility] [id number] Raquel Underwood [id number] 12/01/2022 2 [place] [facility] Mary Patino [id number] 07/08/2024 1 [facility] [id number] Raquel Underwood [id number] 07/08/2024 2 [place] [facility] Mary Patino [id number] 08/18/2024 1 [facility] [id number] Raquel Underwood [id number] 08/18/2024 2 [place] [facility] Mary Patino [id number] 10/21/2024 1 [facility] [id number] Raquel Underwood [id number] 10/21/2024 2 [place] [facility] Mary Patino [id number] Notes Date Note Type Note Provider Name and Address Organization Details Recorded Time 04/12/2021 text/html 15-year-old boby kwong with a history of migraines presents for annual school physical. Patient is going to be a senior in high school and is trying out for the school volleyball team. Patient is up to date on her immunizations and would like to start vaccination against meningococcal B today. Patient reports right foot pain that began 1 week ago after beginning open gym for volleyball. States pain is 9/10 and tender to the touch. Has tried tylenol OTC and icing with minimal relief of symptoms. Admits to history of stress fracture to the right foot a couple years ago. Also reports painful menstrual cramps that last the duration of her bleeding cycle of 5 days. OTC ibuprofen, tylenol and midol has not been helpful. Denies fever, chills, nausea, vomiting, headaches, chest pain, SOB, abdominal pain, diarrhea, constipation, or dysuria. SADE SAINI Attn: Accounting[address] [place], [address], [facility] 04/12/2021 14:18:05 12/01/2022 text/html 15-year-old boby kwong with a history of migraines presents for school physical. 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 Patient is up to date on her immunizations, needs TB serum blood test today. She is feeling great today with no complaints. Denies seasonal allergies but patient congested in the office today. Denies fever, chills, nausea, vomiting, headaches, chest pain, SOB, abdominal pain, diarrhea, constipation, or dysuria. SADE SAINI Attn: Accounting[address] [place], [address], [facility] - [facility] 12/01/2022 14:55:08 07/08/2024 text/html presents to the office for initial evaluation states that she has been having tingling in the feet nad hands over the past 1 month. has been watching her diet. has h/o migraines and they are controlled. has dysmenorreha. she has been watching her diet. Hussain Cleary MD Attn: Accounting, [address] [place], [address], [facility] - [facility] 07/08/2024 18:40:11 08/18/2024 text/html states that she has a painful mass ot hte back of hte neck. has been watching her diet. hte migraines are under contorl Hussain Cleary MD Attn: Accounting, [address] [place], [address], [place] [facility] 08/18/2024 19:47:21 10/21/2024 text/html states that she lost her voice on sunday and it is getting worse the migraines are under control and is watching her diet. Hussain Cleary MD Attn: Accounting[address] [place], [address], [place] [facility] 10/21/2024 15:43:43 OBGyn Episode No OBEpisode recorded.
== END 2024-10-23 13:37 | disposition home or self-care (01) ==
PROVIDERS: Visit Provider Family Medicine
DX: R59.0 Localized enlarged lymph nodes (principal)
CPT/HCPCS: 70491; Q9967